=== PATIENT | male | born 1975 | race Caucasian/White ===

== ENCOUNTER 2016-12-08 11:10 | Emergency (ER) | payer OTHER ==
[~2016-12-08] VITALS: Ht 188 cm; Wt 128.1 kg
[~2016-12-08 11:10] MED LIST: ACET-1256 PO; CLC6 PO; HYDR-5688 PO; LISI-725 PO
[2016-12-08 11:14] VITALS: TEMP 36.6; Ht 188 cm; Wt 128.1 kg
[2016-12-08] MEDS ORDERED: PROMETHAZINE HCL INJ 12.5 MG in SODIUM CHLORIDE 0.9% 50ML 50 ML IV STA (12:09)
[2016-12-08] MEDS ORDERED: SODIUM CHLORIDE 0.9% 1000ML 1,000 ML IV STA (12:09)
[2016-12-08 12:27] LABS: BUN/CREATININE RATIO 19.3 (10-20); CALCIUM 9.4 mg/dl (8.5-10.1); CREATININE 1.1 mg/dl (0.60-1.40); POTASSIUM 3.8 mmol/L (3.5-5.1)
[2016-12-08 12:29] LABS: ALB/GLOB RATIO 1.2 (0.9-2)
[2016-12-08 12:52] LABS: HEMATOCRIT 42.7 % (42-52); MEAN CORPUSCULAR HEMOGLOBIN 30.5 pg (25-34); MEAN CORPUSCULAR HGB CONC 35.1 g/dl (32-36); PLATELET COUNT 127 K/uL (130-400); RED BLOOD COUNT 4.91 M/uL (4.7-6.1); WHITE BLOOD COUNT 7.29 K/uL (4.8-10.8)
[2016-12-08 12:55] LABS: BASO % 0.1 %; BASO ABS # 0.01 K/uL (0-0.2); COMPLETE YES; EOS % 1.9 %; IG% 0.1 %; LYMPH % 19.5 %; LYMPH ABS # 1.42 K/uL (1.2-3.4); MONO % 7.7 %; NEUT % 70.7 %
--- NOTE | 2016-12-08 13:04 | DIAGNOSTIC IMAGING REPORT ---
CT HEAD WITHOUT CONTRAST (CT) CLINICAL HISTORY: Vertigo, headache. COMPARISON STUDY: No previous studies for comparison. TECHNIQUE: Axial CT of the brain is performed from the vertex to the skull base. IV contrast was not administered for this examination. CT DOSE: 687.98 mGy.cm FINDINGS: No intra or extra-axial mass lesions are visualized. There is no CT evidence of acute cortical infarction. There is no evidence of midline shift. There is no acute hemorrhage. No calvarial fractures are visualized. There is no evidence of pathologic ventricular dilatation. There is a giant cisterna magna. There is partial opacification left maxilla sinus, likely secondary to a large retention cyst. IMPRESSION: No acute intracranial findings Electronically signed by: Kiko Smith M.D. 12/08/2016 1:02 PM Dictated Date/Time: 12/08/2016 1:01 PM
[2016-12-08] MEDS ORDERED: MECLIZINE HCL 25 MG TAB PO STA (13:34)
[2016-12-08] MEDS ORDERED: PROM1SUP19 PR (14:39)
[2016-12-08] MEDS ORDERED: MECL1TAB42 PO (14:39)
[2016-12-08 14:40] LABS: URINE APPEARANCE CLEAR (CLEAR); URINE BILIRUBIN NEG (NEG); URINE COLOR YELLOW; URINE EPITHELIAL CELL AUTO 20-30 /lpf (0-5); URINE NITRITE NEG (NEG); URINE PH 6.5 (4.5-7.5); URINE SPECIFIC GRAVITY 1.021 (1.000-1.030); UROBILINOGEN NEG (NEG); ZZUR CULT IF INDIC CLEAN CATCH NO
[2016-12-08 14:54] VITALS: BP 142/77; PULSE 57; O2SAT 93
[2016-12-08 14:54] LABS: MANUAL MICROSCOPIC REQUIRED? NO; REVIEW REQ? NO
[2016-12-08] MEDS ORDERED: AMR2 PO (14:57)
[2016-12-08] MEDS ORDERED: ASPI81TA28 PO (14:57)
[2016-12-08] MEDS ORDERED: CLOP1TAB15 PO (14:57)
[2016-12-08] MEDS ORDERED: METO25TA56 PO (14:57)
[2016-12-08] MEDS ORDERED: LISI-725 PO (14:57)
[2016-12-08] MEDS ORDERED: AMLO-110 PO (14:57)
[2016-12-08] MEDS ORDERED: FENO145T26 PO (14:57)
[2016-12-08] MEDS ORDERED: METF-841 PO (14:57)
[2016-12-08] MEDS ORDERED: NTRGSL/4 UT (14:57)
[2016-12-08] MEDS ORDERED: GABA1CAP5 PO (14:57)
[2016-12-08] MEDS ORDERED: ATOR-26 PO (14:57)
[2016-12-08] MEDS ORDERED: NICO7DIS10 TOP (14:57)
--- NOTE | 2016-12-08 17:45 | EMERGENCY ROOM VISIT NOTE ---
History Report prepared by Filomena: Silver Soto Under the Supervision of: Dr. Joaquin Green M.D. First contact with patient: 11:57 Chief Complaint: VOMITING Stated Complaint: DIZZY,VOMITTING,CANT WALK STRAIGHT,ALL SINCE . Nursing Triage Summary: pt reports n/v/d since Sunday pt feels dizzy and lightheaded decrease fluid and food intake pt reports "dry heaves today" 1 loose stool today headache last several days History of Present Illness The patient is a 41 year old male who presents to the Emergency Room with complaints of vomiting that began three days ago. At this time, the patient began experiencing dizziness that he describes as being off balance or drunk. He states that turning his head too fast makes his dizziness worse, which makes him have episodes of nausea with emesis. This has never happened the him before. He also is having diarrhea which began at the same time as well. He currently has a headache that is predominantly right sided. He has not been eating much secondary to his nausea. However, he ate soup last night and notes more diarrhea today. He denies any fevers, abdominal pain, numbness, weakness, speech trouble, vision trouble, hearing loss, or ringing in his ears. He denies any family history of vertigo. The patient tried taking Antivert yesterday, but notes that he vomited after taking it. Source of History: patient Onset: three days ago Position: other (GI) Symptom Intensity: Multiple episodes Quality: other (dizziness and vomiting) Timing: intermittent Modifying Factors (Worsening): movement Associated Symptoms: + headache, + nausea, + diarrhea, No fevers, No abdominal pain, No weakness, No numbness Note: He is experiencing dizziness. He denies any trouble with his vision, hearing, or speech. Review of Systems See HPI for pertinent positives & negatives. A total of 10 systems reviewed and were otherwise negative. Past Medical & Surgical Medical Problems: (1) Displacement of lumbar intervertebral disc without myelopathy Family History Patient reports no known family medical history. Social History Smoking Status: Current Every Day Smoker Drug Use: none Marital Status: in relationship Housing Status: lives with significant other Occupation Status: employed Current/Historical Medications Scheduled Amlodipine (Norvasc), 5 MG PO DAILY Aspirin (Aspirin Ec), 81 MG PO DAILY Atorvastatin (Lipitor), 80 MG PO DAILY Clopidogrel (Plavix), 75 MG PO DAILY Fenofibrate (Tricor ), 145 MG PO DAILY Gabapentin (Neurontin), 400 MG PO QID Glimepiride (Glimepiride), 2 MG PO DAILY Lisinopril (Zestril), 20 MG PO DAILY Meclizine Hcl (Meclizine Hcl), 1 TAB PO Q8 Metformin HCl (Metformin HCl ER), 1,000 MG PO BID Metoprolol Tartrate (Lopressor) (Lopressor), 25 MG PO BID Nicotine (Nicotine), 1 PATCH TOP DAILY Nitroglycerin (Nitrostat), 0.4 MG UT PRN Scheduled PRN Promethazine (Phenergan Suppository), 25 MG MS Q6H PRN for Nausea Allergies Coded Allergies: No Known Allergies (Unverified , 10/14/12) Physical Exam Vital Signs Date Time Temp Pulse Resp B/P (MAP) Pulse Ox O2 Delivery O2 Flow Rate FiO2 12/08/16 14:54 57 20 142/77 93 Room Air 12/08/16 14:18 98 Room Air 12/08/16 13:32 61 20 139/64 98 Room Air 12/08/16 11:55 54 20 143/83 98 12/08/16 11:14 36.6 66 18 159/97 99 Room Air Physical Exam Constitutional: Vital signs reviewed. Eyes: Pupils are equal round reactive to light. Conjunctiva are noninjected. ENT: Pharynx is clear without erythema or exudate. Mucous membranes are moist. Neck supple without meningeal signs. Respiratory: Clear to auscultation bilaterally. Breath sounds are equal bilaterally. Cardiovascular: Regular rate and rhythm. No rubs or gallops. GI: Soft, nondistended and nontender. Bowel sounds are present. Musculoskeletal: No peripheral edema. No lower extremity tenderness. Integumentary: No cyanosis. Neurological: The patient is awake and alert. Cranial nerves II-XII are intact. Motor is 5 out of 5 all extremities. Sensation is intact to light touch all extremities. Normal speech. No pronator drift. No limb ataxia. No dysdiadochokinesis. Positive head impulse testing. Negative test of skew. Left lateral nystagmus. No rotatory or vertical nystagmus. Psychiatric: Normal affect. Medical Decision & Procedures ER Provider Diagnostic Interpretation: Radiology results as stated below per my review and the radiologist's interpretation: CT HEAD WITHOUT CONTRAST (CT) CLINICAL HISTORY: Vertigo, headache. COMPARISON STUDY: No previous studies for comparison. TECHNIQUE: Axial CT of the brain is performed from the vertex to the skull base. IV contrast was not administered for this examination. CT DOSE: 687.98 mGy.cm FINDINGS: No intra or extra-axial mass lesions are visualized. There is no CT evidence of acute cortical infarction. There is no evidence of midline shift. There is no acute hemorrhage. No calvarial fractures are visualized. There is no evidence of pathologic ventricular dilatation. There is a giant cisterna magna. There is partial opacification left maxilla sinus, likely secondary to a large retention cyst. IMPRESSION: No acute intracranial findings Electronically signed by: Kiko Smith M.D. 12/08/2016 1:02 PM Dictated Date/Time: 12/08/2016 1:01 PM Laboratory Results 12/08/16 11:52 Red Blood Count 4.91, Mean Corpuscular Volume 87.0, Mean Corpuscular Hemoglobin 30.5, Mean Corpuscular Hemoglobin Concent 35.1, Mean Platelet Volume 12.0, Neutrophils (%) (Auto) 70.7, Lymphocytes (%) (Auto) 19.5, Monocytes (%) (Auto) 7.7, Eosinophils (%) (Auto) 1.9, Basophils (%) (Auto) 0.1, Neutrophils # (Auto) 5.15, Lymphocytes # (Auto) 1.42, Monocytes # (Auto) 0.56, Eosinophils # (Auto) 0.14, Basophils # (Auto) 0.01 12/08/16 11:52 Test 12/08/16 00:00 12/08/16 11:52 Urine Color YELLOW Urine Appearance CLEAR (CLEAR) Urine pH 6.5 (4.5-7.5) Urine Specific [place] 1.021 (1.000-1.030) Urine Protein 3+ (NEG) Urine Glucose (UA) NEG (NEG) Urine Ketones TRACE (NEG) Urine Occult Blood NEG (NEG) Urine Nitrite NEG (NEG) Urine Bilirubin NEG (NEG) Urine Urobilinogen NEG (NEG) Urine Leukocyte Esterase NEG (NEG) Urine WBC (Auto) 1-5 /hpf (0-5) Urine RBC (Auto) 0-4 /hpf (0-4) Urine Hyaline Casts (Auto) 5-10 /lpf (0-5) Urine Epithelial Cells (Auto) 20-30 /lpf (0-5) Urine Bacteria (Auto) NEG (NEG) White Blood Count 7.29 K/uL (4.8-10.8) Red Blood Count 4.91 M/uL (4.7-6.1) Hemoglobin 15.0 g/dL (14.0-18.0) Hematocrit 42.7 % (42-52) Mean Corpuscular Volume 87.0 fL (80-100) Mean Corpuscular Hemoglobin 30.5 pg (25-34) Mean Corpuscular Hemoglobin Concent 35.1 g/dl (32-36) Platelet Count 127 K/uL (130-400) Mean Platelet Volume 12.0 fL (7.4-10.4) Neutrophils (%) (Auto) 70.7 % Lymphocytes (%) (Auto) 19.5 % Monocytes (%) (Auto) 7.7 % Eosinophils (%) (Auto) 1.9 % Basophils (%) (Auto) 0.1 % Neutrophils # (Auto) 5.15 K/uL (1.4-6.5) Lymphocytes # (Auto) 1.42 K/uL (1.2-3.4) Monocytes # (Auto) 0.56 K/uL (0.11-0.59) Eosinophils # (Auto) 0.14 K/uL (0-0.5) Basophils # (Auto) 0.01 K/uL (0-0.2) RDW Standard Deviation 41.8 fL (36.4-46.3) RDW Coefficient of Variation 13.0 % (11.5-14.5) Immature Granulocyte % (Auto) 0.1 % Immature Granulocyte # (Auto) 0.01 K/uL (0.00-0.02) Anion Gap 11.0 mmol/L (3-11) Est Creatinine Clear Calc Drug Dose 127.0 ml/min Estimated GFR () 96.8 Estimated GFR (Non- 83.5 BUN/Creatinine Ratio 19.3 (10-20) Calcium Level 9.4 mg/dl (8.5-10.1) Total Bilirubin 0.5 mg/dl (0.2-1) Aspartate Amino Transf (AST/SGOT) 36 U/L (15-37) Alanine Aminotransferase (ALT/SGPT) 55 U/L (12-78) Alkaline Phosphatase 39 U/L (45-117) Total Protein 7.4 gm/dl (6.4-8.2) Albumin 4.0 gm/dl (3.4-5.0) Globulin 3.4 gm/dl (2.5-4.0) Albumin/Globulin Ratio 1.2 (0.9-2) Lipase 107 U/L (73-393) Laboratory results as reviewed by me. Medications Administered Medications (Trade) Dose Ordered Sig/Anthony Route Start Time Stop Time Status Last Admin Dose Admin Sodium Chloride 1,000 ml @ 999 mls/hr Q1H1M STAT IV 12/08/16 12:09 12/08/16 13:09 DC 12/08/16 12:00 999 MLS/HR Promethazine HCl 12.5 mg/Sodium Chloride 50.5 ml @ 204 mls/hr NOW STAT IV 12/08/16 12:09 12/08/16 12:23 DC 12/08/16 12:37 204 MLS/HR Meclizine HCl (Antivert Tab) 25 mg NOW STAT PO 12/08/16 13:34 12/08/16 13:35 DC 12/08/16 13:46 25 MG ED Course 1157: The patient was evaluated in room C1. A complete history and physical exam was performed. 1209: Ordered Promethazine HCl 12.5 mg/Sodium Chloride 50.5 ml @ 204 mls/hr IV, Sodium Chloride 1000 ml @ 999 mls/hr IV 1330: The patient is feeling better. He is less nauseated and dizzy. I will be paging Dr. Germain of Neurology to discuss the patient's case. 1333: I spoke with Dr. Germian of Neurology at this time. 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 He recommends Meclizine. 1334: Ordered Antivert Tab 25 mg PO 1339: I discussed Dr. Germain's recommendations with the patient and his . 1435: The patient is feeling even better now. He is able to walk without difficulty. 1505: Upon reevaluation, the patient appeared to have improvement of his symptoms. I discussed tonight's findings with him. He verbalized agreement of the treatment plan. He was discharged home. Medical Decision This is a 41-year-old male who presents with acute vertigo. Differential diagnosis includes benign positional vertigo, labyrinthitis, Mnire's disease, intracranial hemorrhage, CVA, intracranial mass I did perform a limited focused review of portions of the patient's old chart on the electronic medical record. The patient has had no recent pertinent visits to this hospital. Blood Pressure Screening: Patient was found to have an elevated blood pressure and was referred to their primary doctor for recheck and further treatment. Medication Reconciliation: I attest that I have personally reviewed the patient' s current medication list. I did evaluate the patient as noted above. The patient is presenting with acute vertigo. His symptoms are consistent with a peripheral cause. He has no cerebellar signs. No limb ataxia or dysdiadochokinesis. He does have a positive head and pulse test with lateral nystagmus. Negative test askew. IV access was established. I did treat him with Phenergan IV. He is also given normal saline IV. He was also given Antivert. The patient was placed on a continuous teletypesetter monitor. I did order and review the patient's blood work as noted in the electronic medical record. I did order a CT of the head. I did review the images myself as well as the radiology report as described above. There is no evidence of acute intracranial abnormality. He does have a large cisterna magna. I did reevaluate the patient. He is feeling better. He is able to walk and is not unsteady. I did discuss the case with Dr. Germain of neurology. 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 He felt the patient could be discharged home with Antivert. I did discuss the plan with the patient and his significant other. He was discharged with a prescription for Antivert and PRN Phenergan suppositories. Consults Time Called: 1330 Consulting Physician: Dr. Germain - Neurology Returned Call: [phone] We discussed the patient's case. Please see the ED course for more information. Impression Primary Impression: Vertigo Scribe Attestation The scribe's documentation has been prepared under my direct and personally reviewed by me in its entirety. I confirm that the note above accurately reflects all work, treatment, procedures, and medical decision making performed by me. Departure Information Dispostion Home / Self-Care Prescriptions Promethazine (Phenergan Suppository) 25 Mg Supp 25 MG MS Q6H Y for Nausea, #10 SUPP Prov: Joaquin Green M.D. 12/08/16 Meclizine Hcl (MECLIZINE HCL) 25 Mg Tab 1 TAB PO Q8, #20 TAB Prov: Joaquin Green M.D. 12/08/16 Referrals Brad Higginbotham M.D. (PCP) Forms HOME CARE DOCUMENTATION FORM, IMPORTANT VISIT INFORMATION Patient Instructions ED Vertigo Unspecified, My [facility] Additional Instructions You have been examined and treated today on an emergency basis only. This is not a substitute for, or an effort to provide, complete comprehensive medical care. It is impossible to recognize and treat all injuries or illnesses in a single emergency department visit. It is therefore important that you follow up closely with your physician and Dr. Germain of neurology. Call as soon as possible for an appointment. Return for worsening symptoms or if you develop fever, numbness or weakness in your extremities, difficulty with your speech, vision or swallowing or any other concerning symptoms.
== END 2016-12-08 15:09 | disposition home or self-care (01) ==
LOC: C.EDB 11:12 → C.EDC 15:09
DX: R42 Dizziness and giddiness (principal); R11.2 Nausea with vomiting, unspecified; F17.210 Nicotine dependence, cigarettes, uncomplicated; M51.26 Other intervertebral disc displacement, lumbar region; R26.81 Unsteadiness on feet